=== PATIENT | female | born 1955 | race Caucasian/White ===

== ENCOUNTER 2021-06-13 10:22 | Outpatient (CLI) | payer MEDICARE, BC, SELFPAY ==
--- NOTE | 2021-06-13 11:00 | NEURO_ITS ---
Impression: # Complains of numbness of right hand. # Right moderate Carpal Tunnel Syndrome. # No ulnar neuropathy. # Normal needle/EMG exam. Nerve Conduction Studies Anti Sensory Summary Table Stim Site NR Peak (ms) P-T Amp (?V) Site1 Site2 Delta-P (ms) Dist (cm) Sage (m/s) Right Median Anti Sensory (2-3nd Digit) Wrist 6.7 10.7 Wrist 2-3nd Digit 6.7 14.0 21 Wrist 6.4 19.4 Wrist 2-3nd Digit 6.7 14.0 21 Right Radial Anti Sensory (Base 1st Digit) Wrist 2.3 20.8 Wrist Base 1st Digit 2.3 0.0 Right Ulnar Anti Sensory (5th Digit) Wrist 2.3 38.9 Wrist 5th Digit 2.3 14.0 61 Motor Summary Table Stim Site NR Onset (ms) O-P Amp (mV) Site1 Site2 Delta-0 (ms) Dist (cm) Sage (m/s) Right Median Motor (Abd Poll Brev) Wrist 5.2 0.9 Elbow Wrist 4.9 29.0 59 Elbow 10.1 2.4 Right Ulnar Motor (Abd Dig Minimi) Wrist 2.3 3.5 A Elbow Wrist 4.9 28.0 57 A Elbow 7.2 2.6 F Wave Studies NR F-Lat (ms) L-R F-Lat (ms) Right Median (Mrkrs) (Abd Poll Brev) 28.36 Right Ulnar (Mrkrs) (Abd Dig Min) 28.44 EMG Side Muscle Nerve Root Ins Act Fibs Amp Dur Recrt Comment Right 1stDorInt Ulnar C8-T1 Nml Nml Nml Nml Nml Right Ext Indicis Radial (Post Int) C7-8 Nml Nml Nml Nml Nml Right Ext Digitorum Radial (Post Int) C7-8 Nml Nml Nml Nml Nml Right BrachioRad Radial C5-6 Nml Nml Nml Nml Nml Right PronatorTeres Median C6-7 Nml Nml Nml Nml Nml Right Abd Poll Brev Median C8-T1 Nml Nml Nml Nml Nml MTDD
== END 2021-06-13 10:23 | disposition home or self-care (01) ==
PROVIDERS: PCP Internal Medicine; Visit Provider Physician Assistant Surgical
DX: G56.01 Carpal tunnel syndrome, right upper limb (principal)
CPT/HCPCS: 95886; 95909

== ENCOUNTER 2022-10-12 03:11 | Day surgery (SDC) | payer MEDICARE, BC, SELFPAY ==
[2022-09-28 16:10] VITALS: BMI 29.2
[2022-10-12 08:38] VITALS: BP 124/79; PULSE 79; RESP 18; TEMP 36.6; O2SAT 98
[2022-10-12] MEDS: LACTATED RINGERS 1,000 ML 150 ML IV CONT (08:47)
--- NOTE | 2022-10-12 09:15 | PM.HPGS ---
History of Present Illness History of Present Illness Consent: Risks, benefits, and alternatives have been discussed and questions answered. Patient agrees to proceed with procedure. Chief complaint: Iron Deficiency Anemia Narrative: Kathie Serrano is a 67 year old female who is referred for investigation of iron deficiency anemia. She has not seen blood her stools all of occasion she has a very dark, black stool. She denies abdominal pain or weight loss she did have a right colon resection fiber 6 years ago because of ruptured diverticulitis. She does take B12 supplements. Review of Systems Review of Systems: All systems reviewed & are unremarkable except as noted in HPI and below Meds Home Medications and Allergies Home Medications Medication Instructions Recorded Confirmed Type atorvastatin 40 mg tablet 40 mg PO DAILY 09/28/22 09/28/22 History clorazepate dipotassium 7.5 mg 7.5 mg PO DAILY 09/28/22 09/28/22 History tablet ferrous sulfate 1 tab-cap PO DAILY 09/28/22 09/28/22 History sertraline 100 mg tablet 200 mg PO DAILY 09/28/22 09/28/22 History Allergies Allergy/AdvReac Type Severity Reaction Status Date / Time No Known Allergies Allergy Verified 10/12/22 08:36 Vital Signs Vital Signs - 24 hr 10/12/22 08:38 Temperature 36.6 C Pulse Rate 79 Respiratory Rate 18 Blood Pressure 124/79 Pulse Oximetry 98 Oxygen Delivery Room Air Exam Const: General: alert Orientation/consciousness: patient oriented x3 Resp: Auscultation: clear to auscultation bilaterally Cardio: Rhythm: regular rhythm GI: GI Palp: Yes Soft to palpation and No Tenderness to palpation present (GI) Neuro: General: patient oriented x3 Assessment and Plan Assessment and plan (1) Iron deficiency anemia: Code(s): D50.9 - Iron deficiency anemia, unspecified Status: Acute Assessment and Plan: EGD with possible biopsy or dilatation or cautery.Colonoscopy with possible biopsy or polypectomy or cautery or injection of substances.
--- NOTE | 2022-10-12 09:21 | P.PNAN_ITS ---
Anes - Initial Pre Proc Eval Procedure: Operation Date: 10/12/22 10:00 Proposed Procedures p Esophagogastroduodenoscopy & Colonoscopy - Jose L Seymour MD Date/Time: 10/12/22 09:21 Surgeon: Jose L Seymour MD Pre Op Diagnosis: Iron Deficiency Anemia Patient Data Age: 67 Gender: F Height: 1.6 m Weight: 70 kg Last Vital Signs Temp 97.9 F 10/12/22 08:38 Pulse 79 10/12/22 08:38 Resp 18 10/12/22 08:38 BP 124/79 10/12/22 08:38 Pulse Ox 98 10/12/22 08:38 O2 Del Method Room Air 10/12/22 08:38 Allergies Allergy/AdvReac Type Severity Reaction Status Date / Time No Known Allergies Allergy Verified 10/12/22 08:36 Home Medications Medication Instructions Recorded Confirmed Type atorvastatin 40 mg tablet 40 mg PO DAILY 09/28/22 09/28/22 History clorazepate dipotassium 7.5 mg 7.5 mg PO DAILY 09/28/22 09/28/22 History tablet ferrous sulfate 1 tab-cap PO DAILY 09/28/22 09/28/22 History sertraline 100 mg tablet 200 mg PO DAILY 09/28/22 09/28/22 History Patient hx anesthesia problems: none Family hx anesthesia problems: none Results Review: All pre-operative results and documents have been reviewed as part of the pre- operative evaluation. Anes - Eval Final PreProcedure Day of Procedure 10/12/22 09:21 Patient weight: normal Heart: regular rate and rhythm Lungs: clear to auscultation Airway: Mallampati scale class II Neurological: alert and oriented Last oral intake: >/= 8 hours ASA classification: II Emergent: no Anesthetic plan: proceed Anesthesia type and monitoring: general GIVS and standard monitoring Results Review: All pre-operative results and documents have been reviewed as part of the pre- operative evaluation. Informed Consent: The patient's anesthetic plan and its attendant risks and benefits were discussed with the patient/family/POA. Questions were solicited and answers provided to the satisfaction of the patient/family/POA.
--- NOTE | 2022-10-12 10:01 | SUR.OPER ---
EGD START: 948; END: 953. COLONOSCOPY START: 1000; END: 1008.
[2022-10-12 10:14] VITALS: BP 104/66; PULSE 61; RESP 18; O2SAT 93
[2022-10-12 10:24] VITALS: BP 111/70; PULSE 62; RESP 18; O2SAT 96
[2022-10-12 10:34] VITALS: BP 113/75; PULSE 60; RESP 18; O2SAT 96
== END 2022-10-12 10:52 | disposition home or self-care (01) ==
PROVIDERS: PCP Internal Medicine; Visit Provider Internal Medicine Gastroenterology
PROC: 0DJ08ZZ Inspection of Upper Intestinal Tract, Via Natural or Artificial Opening Endoscopic (ICD-10-PCS; CPT 43235; principal; 2022-10-12 10:00)
DX: K25.9 Gastric ulcer, unspecified as acute or chronic, without hemorrhage or perforation (principal); D50.9 Iron deficiency anemia, unspecified; K21.00 Gastro-esophageal reflux disease with esophagitis, without bleeding; K44.9 Diaphragmatic hernia without obstruction or gangrene; K29.70 Gastritis, unspecified, without bleeding; K57.30 Diverticulosis of large intestine without perforation or abscess without bleeding; Z98.0 Intestinal bypass and anastomosis status; Z90.49 Acquired absence of other specified parts of digestive tract; Z87.19 Personal history of other diseases of the digestive system
CPT/HCPCS: 43239; 45378; 87081; 88305; 88313; J2001; J2704; J7120

== ENCOUNTER 2022-12-21 01:14 | Day surgery (SDC) | payer MEDICARE, BC, SELFPAY ==
[2022-12-10 13:54] VITALS: BMI 26.6
--- NOTE | 2022-12-19 12:07 | SUR.PREOP ---
Patient called regarding upcoming procedure. Message left on patient's voicemail regarding preop instructions, appointment times, and procedure prep.
--- NOTE | 2022-12-20 13:41 | PM.HPGS ---
History of Present Illness History of Present Illness Consent: Risks, benefits, and alternatives have been discussed and questions answered. Patient agrees to proceed with procedure. Chief complaint: Ulcer of esophagus without bleeding Narrative: Kathie Serrano is a 67 year old female Who 2 months ago was found have reflux esophagitis and multiple gastric ulcers. is unclear whether she ever got a prescription for pantoprazole which I believe have been ordered. She has been taking cholestyramine since then and having much better control of her bowel movements. Review of Systems Review of Systems: All systems reviewed & are unremarkable except as noted in HPI and below PMFSH Past Medical History Medical History Anemia Depression Diverticulosis Factor V Leiden History of esophageal ulcer Hyperlipidemia Migraine Surgical History Surgical History History of tubal ligation Social History Social History Smoking status: Never smoker Substance use type: does not use Living arrangements: alone Spiritual care concerns: No Meds Home Medications and Allergies Home Medications Medication Instructions Recorded Confirmed Type atorvastatin 40 mg tablet 40 mg PO DAILY 09/28/22 12/10/22 History clorazepate dipotassium 7.5 mg 7.5 mg PO DAILY PRN other 09/28/22 12/10/22 History tablet ferrous sulfate 1 tab-cap PO DAILY 09/28/22 12/10/22 History sertraline 100 mg tablet 200 mg PO DAILY 09/28/22 12/10/22 History cholestyramine (with sugar) 4 gram 4 g PO DAILY #30 ea 10/12/22 12/10/22 Rx powder for susp in a packet ascorbic acid (vitamin C) 500 mg 500 mg PO DAILY 12/10/22 12/10/22 History tablet cholecalciferol (vitamin D3) 25 25 mcg PO DAILY 12/10/22 12/10/22 History mcg (1,000 unit) tablet (Vitamin D3) vitamin B complex 1 tablet PO DAILY 12/10/22 12/10/22 History Allergies Allergy/AdvReac Type Severity Reaction Status Date / Time No Known Allergies Allergy Verified 12/21/22 07:50 Exam Const: General: alert Orientation/consciousness: patient oriented x3 Resp: Auscultation: clear to auscultation bilaterally Cardio: Rhythm: regular rhythm GI: GI Palp: Yes Soft to palpation and No Tenderness to palpation present (GI) Neuro: General: patient oriented x3 Assessment and Plan Assessment and plan (1) Gastric ulcer: Code(s): K25.9 - Gastric ulcer, unspecified as acute or chronic, without hemorrhage or perforation Status: Acute Assessment and Plan: EGD with possible biopsy or dilatation or cautery.
--- NOTE | 2022-12-21 07:19 | P.PNAN_ITS ---
Anes - Initial Pre Proc Eval Procedure: Operation Date: 12/21/22 09:15 Proposed Procedures p Esophagogastroduodenoscopy - Jose L Seymour MD Date/Time: 12/21/22 07:19 Surgeon: Jose L Seymour MD Pre Op Diagnosis: Ulcer of esophagus without bleeding Patient Data Age: 67 Gender: F Height: 1.6 m Weight: 68.3 kg Allergies Allergy/AdvReac Type Severity Reaction Status Date / Time No Known Allergies Allergy Verified 12/21/22 07:50 Home Medications Medication Instructions Recorded Confirmed Type atorvastatin 40 mg tablet 40 mg PO DAILY 09/28/22 12/10/22 History clorazepate dipotassium 7.5 mg 7.5 mg PO DAILY PRN other 09/28/22 12/10/22 History tablet ferrous sulfate 1 tab-cap PO DAILY 09/28/22 12/10/22 History sertraline 100 mg tablet 200 mg PO DAILY 09/28/22 12/10/22 History cholestyramine (with sugar) 4 gram 4 g PO DAILY #30 ea 10/12/22 12/10/22 Rx powder for susp in a packet ascorbic acid (vitamin C) 500 mg 500 mg PO DAILY 12/10/22 12/10/22 History tablet cholecalciferol (vitamin D3) 25 25 mcg PO DAILY 12/10/22 12/10/22 History mcg (1,000 unit) tablet (Vitamin D3) vitamin B complex 1 tablet PO DAILY 12/10/22 12/10/22 History pantoprazole 40 mg tablet,delayed 40 mg PO QAM #30 tabs 12/21/22 Rx release Patient hx anesthesia problems: none Family hx anesthesia problems: none Results Review: All pre-operative results and documents have been reviewed as part of the pre- operative evaluation. [facility] Past Medical History Medical History Anemia Depression Diverticulosis Factor V Leiden History of esophageal ulcer Hyperlipidemia Migraine Surgical History Surgical History History of tubal ligation Social History Social History Smoking status: Never smoker Substance use type: does not use Living arrangements: alone Spiritual care concerns: No Anes - Eval Final PreProcedure Day of Procedure 12/21/22 07:19 Patient weight: overweight Heart: regular rate and rhythm Lungs: clear to auscultation Airway: Mallampati scale class II Neurological: alert and oriented Last oral intake: >/= 8 hours ASA classification: III Emergent: no Anesthetic plan: proceed Anesthesia type and monitoring: general GIVS and standard monitoring Results Review: All pre-operative results and documents have been reviewed as part of the pre- operative evaluation. Informed Consent: The patient's anesthetic plan and its attendant risks and benefits were discussed with the patient/family/POA. Questions were solicited and answers provided to the satisfaction of the patient/family/POA.
[2022-12-21 07:51] VITALS: BP 119/71; PULSE 73; RESP 20; TEMP 36.6; O2SAT 97; BMI 28.5
[2022-12-21] MEDS: LACTATED RINGERS 1,000 ML 150 ML IV CONT (07:59)
--- NOTE | 2022-12-21 08:48 | WPDANESEPPF ---
Anes - Initial Pre Proc Eval Procedure: Operation Date: 12/21/22 09:15 Proposed Procedures p Esophagogastroduodenoscopy - Jose L Seymour MD Date/Time: 12/21/22 08:48 Surgeon: Jose L Seymour MD Pre Op Diagnosis: Ulcer of esophagus without bleeding Patient Data Age: 67 Gender: F Height: 1.6 m Weight: 73.2 kg Last Vital Signs Temp 97.9 F 12/21/22 07:51 Pulse 73 12/21/22 07:51 Resp 20 12/21/22 07:51 BP 119/71 12/21/22 07:51 Pulse Ox 97 12/21/22 07:51 O2 Del Method Room Air 12/21/22 07:51 Allergies Allergy/AdvReac Type Severity Reaction Status Date / Time No Known Allergies Allergy Verified 12/21/22 07:50 Home Medications Medication Instructions Recorded Confirmed Type atorvastatin 40 mg tablet 40 mg PO DAILY 09/28/22 12/10/22 History clorazepate dipotassium 7.5 mg 7.5 mg PO DAILY PRN other 09/28/22 12/10/22 History tablet ferrous sulfate 1 tab-cap PO DAILY 09/28/22 12/10/22 History sertraline 100 mg tablet 200 mg PO DAILY 09/28/22 12/10/22 History cholestyramine (with sugar) 4 gram 4 g PO DAILY #30 ea 10/12/22 12/10/22 Rx powder for susp in a packet ascorbic acid (vitamin C) 500 mg 500 mg PO DAILY 12/10/22 12/10/22 History tablet cholecalciferol (vitamin D3) 25 25 mcg PO DAILY 12/10/22 12/10/22 History mcg (1,000 unit) tablet (Vitamin D3) vitamin B complex 1 tablet PO DAILY 12/10/22 12/10/22 History Patient hx anesthesia problems: none Family hx anesthesia problems: none Results Review: All pre-operative results and documents have been reviewed as part of the pre-operative evaluation. [facility] Past Medical History Medical History Anemia Depression Diverticulosis Factor V Leiden History of esophageal ulcer Hyperlipidemia Migraine Surgical History Surgical History History of tubal ligation Social History Social History Smoking status: Never smoker Substance use type: does not use Living arrangements: alone Spiritual care concerns: No Anes - Eval Final PreProcedure Day of Procedure 12/21/22 08:48 Patient weight: normal Heart: regular rate and rhythm Lungs: clear to auscultation Airway: Mallampati scale class II Neurological: alert and oriented Last oral intake: >/= 8 hours ASA classification: II Emergent: no Anesthetic plan: proceed Anesthesia type and monitoring: general GIVS and standard monitoring Results Review: All pre-operative results and documents have been reviewed as part of the pre-operative evaluation. Informed Consent: The patient's anesthetic plan and its attendant risks and benefits were discussed with the patient/family/POA. Questions were solicited and answers provided to the satisfaction of the patient/family/POA.
[2022-12-21 09:26] VITALS: BP 106/66; PULSE 64; RESP 17; O2SAT 100
[2022-12-21 09:36] VITALS: BP 108/68; PULSE 66; RESP 18; O2SAT 100
[2022-12-21 09:46] VITALS: BP 123/74; PULSE 59; RESP 16; O2SAT 100
== END 2022-12-21 09:54 | disposition home or self-care (01) ==
PROVIDERS: PCP Internal Medicine; Visit Provider Internal Medicine Gastroenterology
PROC: 0DJ08ZZ Inspection of Upper Intestinal Tract, Via Natural or Artificial Opening Endoscopic (ICD-10-PCS; CPT 43235; principal; 2022-12-21 09:15)
DX: Z09 Encounter for follow-up examination after completed treatment for conditions other than malignant neoplasm (principal); K25.9 Gastric ulcer, unspecified as acute or chronic, without hemorrhage or perforation; K21.00 Gastro-esophageal reflux disease with esophagitis, without bleeding; K22.2 Esophageal obstruction; K44.9 Diaphragmatic hernia without obstruction or gangrene; D68.51 Activated protein C resistance; E78.5 Hyperlipidemia, unspecified; F32.A Depression, unspecified; D64.9 Anemia, unspecified
CPT/HCPCS: 43249; 88305; C1726; J7120